=== PATIENT | female | born 1995 | race Caucasian/White ===

== ENCOUNTER 2025-03-30 13:51 | Emergency (ER) | payer BC, SELFPAY ==
--- NOTE | 2025-03-30 13:58 | ED_ITS ---
HPI - URI/Sore Throat General Chief Complaint: Upper Respiratory Infection Stated Complaint: sore throat Source: patient and RN notes reviewed Mode of arrival: ambulatory Limitations: no limitations History of Present Illness HPI Narrative: Patient is a 29-year-old female that presents to the [facility] with complaints of sore throat that started this morning. Patient states that she has also been experiencing generalized body aches and chills for the last 2 hours. She denies cough or congestion. Denies known fevers. Unsure of any sick contacts. Patient states that she leaves for vacation tomorrow wanted to make sure that she did not have strep. Related Data Home Medications ?Medication ?Instructions ?Recorded ?Confirmed ?Last Taken ?Type labetalol 100 mg tablet mg 03/30/25 Unknown History levonorgestrel (Mirena) 1 device intrauterine ONCE 1 05/30/24 03/30/25 Unknown History sertraline 100 mg tablet mg 03/30/25 Unknown History Allergies Allergy/AdvReac Type Severity Reaction Status Date / Time No Known Allergies Allergy Verified 03/30/25 14:01 Review of Systems Review of Systems: CONSTITUTIONAL: Denies fever, but reports chills. EYES: Denies visual changes, redness, or discharge. ENT: Denies otalgia but reports sore throat. CARDIOVASCULAR: Denies chest pain, palpitations, or edema. RESPIRATORY: Denies cough or dyspnea. GASTROINTESTINAL: Denies abdominal pain, nausea, vomiting, or diarrhea. GENITOURINARY: Denies dysuria or hematuria. SKIN: Denies rash or itching. MUSCULOSKELETAL: Denies back pain and joint pain, but reports myalgia. NEUROLOGIC: Denies headache, numbness, or weakness. Pertinent positives per HPI. PMFSH Comments At the time of my signature, I reviewed and agree with the nursing past medical, surgical, social, and family history. There is no relevant family history pertinent to the patient complaint. Exam Narrative: GENERAL: This is a well-nourished, well-developed patient, in no apparent distress. HEAD: normocephalic, atraumatic. EYES: Sclera clear/white. Vision is grossly intact. EARS: External ears normal. Hearing grossly intact. NOSE: External nose normal with no obvious nasal discharge, nares without redness, no rhinorrhea. THROAT: Mucous membranes moist, Oropharyngeal erythema. NECK: Neck supple, non-tender without lymphadenopathy, masses or thyromegaly. CARDIOVASCULAR: Regular rate and rhythm without murmurs, gallops, or rubs. RESPIRATORY: Clear to auscultation. Breath sounds equal bilaterally. No wheezes, rales, or rhonchi. GASTROINTESTINAL: Abdomen soft, non-tender, nondistended. Bowel sounds are active. No hepato-splenomegaly, or palpable masses. No guarding. SKIN: warm, intact with no suspicious lesions or rash, good texture and turgor. NEURO: awake, alert, and oriented to person, place and time. There were no obvious focal neurologic abnormalities. Course Course Level of Care: Express Care Visit Vital Signs Vital signs: Vital Signs Temperature 97.9 F 03/30/25 14:01 Pulse Rate 93 03/30/25 14:01 Respiratory Rate 16 03/30/25 14:01 Blood Pressure 129/96 H 03/30/25 14:01 Pulse Oximetry 100 03/30/25 14:01 Oxygen Delivery Room Air 03/30/25 14:01 Temperature 97.9 F 03/30/25 14:01 Pulse Rate 93 03/30/25 14:01 Respiratory Rate 16 03/30/25 14:01 Blood Pressure 129/96 H 03/30/25 14:01 Pulse Oximetry 100 03/30/25 14:01 Oxygen Delivery Room Air 03/30/25 14:01 Reviewed MDM - URI/Sore Throat MDM Narrative Medical decision making narrative: Rapid strep is negative in the office; however we will send to the lab for confirmation; there is a small percentage chance that it can come back positive; if it is, we will call you in 2-3days; and your prescription will be call in to your pharmacy. However, there is NO indication for antibiotic at this time. -Increase your fluids and Vitamin C. -Oral rinses such as: Salt water gargles and/or may use topical anesthetic (eg. Chloraseptic spray) or lozenges to relieve dryness or throat pain. -Take tylenol and ibuprofen as needed for pain and fever as directed. -Frequent hand washing or hand banking services advisor is one of the best ways to prevent spread of infection. -Follow up with primary care provider in 2-3 days if condition is not improving or seek ER visit if your child starts breathing fast/has trouble breathing, is not drinking enough fluids, muffle voice, difficulty opening the mouth or will not wake up or will not interact with you. Differential Diagnosis Differential diagnosis: Likely upper respiratory infection, viral infection, pharyngitis and other (strep) Lab Data Attestation: I reviewed the patient's lab results. Critical Care Time Critical Care Time Critical Care Time: No Discharge Plan Discharge Clinical Impression: Acute viral pharyngitis Patient Disposition: Home Condition: Stable Instructions: Pharyngitis (ED) Additional Instructions: Rapid strep is negative in the office; however we will send to the lab for confirmation; there is a small percentage chance that it can come back positive; if it is, we will call you in 2-3days; and your prescription will be call in to your pharmacy. However, there is NO indication for antibiotic at this time. -Increase your fluids and Vitamin C. -Oral rinses such as: Salt water gargles and/or may use topical anesthetic (eg. Chloraseptic spray) or lozenges to relieve dryness or throat pain. -Take tylenol and ibuprofen as needed for pain and fever as directed. -Frequent hand washing or hand banking services advisor is one of the best ways to prevent spread of infection. -Follow up with primary care provider in 2-3 days if condition is not improving or seek ER visit if your child starts breathing fast/has trouble breathing, is not drinking enough fluids, muffle voice, difficulty opening the mouth or will not wake up or will not interact with you. Patient Language: Maltese Prescriptions: No Action sertraline 100 mg tablet labetalol 100 mg tablet Mirena 21 mcg/24hr (up to 8 yrs) 52 mg intrauterine device 1 device intrauterine ONCE Rx Instructions: as a single dose Follow-up/Referrals: UNKNOWN,DOCTOR [Primary Care Provider] Time of Disposition: 14:20
[2025-03-30 14:01] VITALS: BP 129/96; PULSE 93; RESP 16; TEMP 36.6; O2SAT 100
[2025-03-30 14:18] LABS: EDSTREPNEGPOS1 Negative (Negative)
--- OUTSIDE RECORDS SUMMARY | 2025-03-30 23:14 | XMS_ITS | Clinical Summary ---
Author Organization [facility] Address [address] [place] [id number] Care Team Providers Care Bucket Pusher Name Role Phone Dru Wiggins MD Primary Care Provider [phone] Allergies No known active allergies Medications labetaloL (NORMODYNE,TRAND ATE) 100 mg tablet Take 1 tablet (100 mg total) by mouth 2 (two) times a day Active [id number] 6-dha 30 mg iron-1mg -200 mg capsule Take 1 tablet by mouth daily Active sertraline (ZOLOFT) 50 mg tablet Take 1 tablet (50 mg total) by mouth daily Active ibuprofen (ADVIL,MOTRIN) 600 mg tabletIndication s:Cramps Take 1 tablet (600 mg total) by mouth every 6 (six) hours as needed for pain 30 tablet 02/27/2024 Active Active Problems Problem Noted Date Diagnosed Date Third trimester 02/25/2024 (spontaneous vaginal delivery) 02/25/2024 with 32 completed weeks gestation 02/11 labor in third trimester without deliver y 02/19/2024 Immunizations Immunization Administration Dates Next Due Influenza, Trivalent, Preser vative Free, Intramuscular 02/26/2024 Varicella 02/27/2024(Deferred: Patient Ref used) Medical History Medical History Date Comments Hypertension chronic Anxiety In vitro fertilization Social History Tobacco Use Types Packs/Day Years Used Date Smoking Tobacco: Never Smokeless Tobacco: Never Tobacco Cessation:Counseling Given: Not Answered Social Connection and Isolation Panel Answer Date Recorded In a typical week, how many times do you talk on the phone with family, friends, or neighbors? More than three times a week 02/25/2024 How often do you get togethe r with friends or relatives? More than three times a week 02/25/2024 How often do you attend chur ch or evangelical services? Patient declined 02/25/2024 Do you belong to any clubs o r organizations such as jew groups, unions, fraternal or athletic groups, or school groups? Patient declined 02/25/2024 How often do you attend meet ings of the clubs or organizations you belong to? Patient declined 02/25/2024 Are you , , di vorced, , never , or living with a partner? 02/25/2024 AUDIT-C Answer Date Recorded Q1: How often do you have a drink containing alc ohol? Never 02/25/2024 Average Number of Drinks Not on file 024 Frequency of Binge Drinking Not on file 02/11 Overall Financial Resource Strain (CARDIA) Answe r Date Recorded How hard is it for you to pa y for the very basics like food, housing, medical care, and heating? Not hard at all 02/25/2024 [facility] - Occupational Stress Questionnaire Answer Date Recorded Do you feel stress - tense, restless, nervous, or anxious, or unable to sleep at night because your mind is troubled all the time - these days? Only a little 02/25/2024 Hunger Vital Sign Answer Date Recorded Within the past 12 months, y ou worried that your food would run out before you got the money to buy more. Never true 02/25/20 24 Within the past 12 months, t he food you bought just didn't last and you didn't have money to get more. Never true 02/25/2024 PRAPARE - Transportation Answer Date Re corded In the past 12 months, has l ack of transportation kept you from medical appointments or from getting medications? No 02/11 In the past 12 months, has l ack of transportation kept you from meetings, work, or from getting things needed for daily living? No 02/25/2024 Stevenson Depression Scale Answer Date Recorded Stevenson Depression Scale Total 4 02/26/2024 The thought of harming myself has occurred to me . Never 02/26/2024 Housing Stability Vital Sign Answer Kenneth e Recorded In the last 12 months, was t here a time when you were not able to pay the mortgage or rent on time? No 02/25/2024 In the past 12 months, how m any times have you moved where you were living? 1 02/25/2024 At any time in the past [address] [place], were you homeless or living in a half-way (including now)? No 02/25/2024 Personal Safety Answer Date Recorded Have you ever been in or are you currently in a harmful physical or emotional relationship or is someone making you feel afraid or unsafe? Denies 02/25/2024 Comments No Sex and Gender Information Value Date Recorded Sex Assigned at Not on file Legal Sex Female 7:15 AM PLATE W[employer]ER Gender Identity Not on file Sexual Orientation Not on file Obstetrics History Para Term AB IAB SAB Ectopic Multiple Livin g Live Births 1 1 1 0 1 1 Date Outcome GA Total Labor Labor/2nd/3rd Weight Sex Type Anes PTL Rita A1 A5 Name Clin 2023 32w 3d 10h 16m 9h 15m/0h 58m/0h 03m 2.24 kg (4 lb 15 oz) M Vagina l Epidur al Y Livin g 8 6 [facility] [place] Kendra Walters MD Complications:None Delivery [facility] ([facility]) Last Filed Vital Signs Vital Sign Reading Time Taken Comments Blood Pressure 122/84 02/27/2024 5:20 PM CDT Pulse 86 02/27/2024 5:20 PM CDT Temperature 36.7 C (98 F) 02/27/2024 2:50 PM CDT Respiratory Rate 18 02/27/2024 2:50 PM CDT Oxygen Saturation 98% 02/27/2024 2:50 PM CDT Inhaled Oxygen Concentration - - Weight 123.4 kg (272 lb) 02/19/2024 2:57 PM CDT Height 165.1 cm (5' 5) 02/19/2024 2:57 PM CDT Body Mass Index 45.26 02/19/2024 2:57 PM CDT Plan of Treatment Health Maintenance Due Date Last Done Comments Cervical Cancer Screening 1993 Hepatitis C Screening 1993 DTaP/Tdap/Td Vaccine (4 - Tdap) 2004 08/08/1994, 1993, 1993 Varicella Vaccines (1 of 2 - 13+ 2-dose series) 2006 Regular Well Visit/Exam 18-64 2011 HPV Vaccines (1 - 3-dose SCDM series) 2020 Covid-19 Vaccine ( - 2024- season) 2025 04/28/2021, 08/28/2020, 08/07/2020 Influenza Vaccine (#1) 2025 , 02/25/2023, 02/13/2022, Additional history exists Depression Screening 02/25/2025 02/26/2024 Hepatitis B Screening Completed 1993, 994 Pneumococcal vaccine <65 Aged Out No longer eligible based on patient's age to complete this topic Insurance [employer] [place] [employer] Directives For more information, please contact: [phone] * Full Code (Latest Code Status on File) Date Activated Date Inactivated Comments 02/25/2024 1:11 AM 02/27/2024 11:21 PM Full CPR in case of cardiopulmonary arrest * Full Code Date Activated Date Inactivated Comments 02/19/2024 3:21 PM 02/19/2024 11:49 PM Full CPR in case of cardiopulmonary arrest Care Teams Bucket Pusher Relationship Specialty Start Date End Date Dru Wiggins MD [phone] [id number] PCP - General Internal Medicine 02/19/24
== END 2025-03-30 14:23 | disposition home or self-care (01) ==
PROVIDERS: Emergency Provider Nurse Practitioner
DX: J02.8 Acute pharyngitis due to other specified organisms (principal)
CPT/HCPCS: 87081; 87880; 99203; G0463